=== PATIENT | male | born 1955 | race Caucasian/White ===

== ENCOUNTER 2017-01-17 14:42 | Emergency (ER) | payer MEDICARE, MEDICAID ==
--- NOTE | 2017-01-17 15:31 | Emergency Department Record ---
History of Present Illness - General Chief Complaint: Ankle/Foot Injury Stated Complaint: FELL INJURED LT ANKLE Time Seen by Provider: 01/17/17 15:14 Source: Patient Mode of Arrival: Wheelchair Limitations: No limitations - History of Present Illness Initial Comments: pt fell and injured l ankle. Complaint: Ankle injury Onset/Timin -: Days(s) Injury: Ankle: Left Type of Injury: Other Place: Home Severity: Mild Severity scale (1-10): 8 Improves With: Nothing Worsens With: Nothing Context: Fall, Walking, Other - Related Data Previous Rx's Medication Instructions Recorded Hydrocodone/Acetaminophen [[place] 1 tab PO Q6H PRN #7 tab 01/17/17 5mg/325mg] Allergies Allergy/AdvReac Type Severity Reaction Status Date / Time No Known Drug Allergies Allergy Verified 01/17/17 14:54 Travel Screening - Travel/Exposure Within Last 30 Days Have you traveled within the last 30 days?: No - Travel/Exposure Within Last Year Have you traveled outside the [place] in the last year?: No - Additonal Travel Details Have you been exposed to anyone with a communicable illness?: No - Travel Symptoms Symptom Screening: None Review of Systems Reviewed: No additional complaints except as noted below Constitutional: Reports: As per HPI. Denies: Chills, Fever, Malaise, Night sweats, Weakness, Weight change Eyes: Reports: As per HPI. Denies: Eye discharge, Eye pain, Photophobia, Vision change ENT: Reports: As per HPI. Denies: Congestion, Dental pain, Ear pain, Epistaxis , Hearing loss, Throat pain Respiratory: Reports: As per HPI. Denies: Cough, Dyspnea, Hemoptysis, Stridor, Wheezes Cardiovascular: Reports: As per HPI. Denies: Arrhythmia, Chest pain, Dyspnea on exertion, Edema, Murmurs, Orthopnea, Palpitations, Paroxysmal nocturnal dyspnea, Rheumatic Fever, Syncope Endocrine: Reports: As per HPI. Denies: Fatigue, Heat or cold intolerance, Polydipsia, Polyuria Gastrointestinal: Reports: As per HPI. Denies: Abdominal pain, Constipation, Diarrhea, Hematemesis, Hematochezia, Melena, Nausea, Vomiting Genitourinary: Reports: As per HPI. Denies: Dysuria, Frequency, Hematuria, Incontinence, Retention, Testicular pain, Testicular mass, Urgency Musculoskeletal: Reports: As per HPI. Denies: Arthralgia, Back pain, Gout, Joint swelling, Myalgia, Neck pain Skin: Reports: As per HPI. Denies: Bruising, Change in color, Change in hair/ nails, Lesions, Pruritus, Rash Neurological: Reports: As per HPI. Denies: Abnormal gait, Confusion, Headache, Numbness, Paresthesias, Seizure, Tingling, Tremors, Vertigo, Weakness Psychiatric: Reports: As per HPI. Denies: Anxiety, Auditory hallucinations, Depression, Homicidal thoughts, Suicidal thoughts, Visual hallucinations Hematological/Lymphatic: Reports: As per HPI. Denies: Anemia, Blood Clots, Easy bleeding, Easy bruising, Swollen glands Past Medical History - SOCIAL HISTORY Smoking Status: Current every day smoker Alcohol Use: Heavy Drug Use: None - RESPIRATORY Hx Respiratory Disorders: No - CARDIOVASCULAR Hx Cardio Disorders: Yes Hx Hypertension: Yes Comment:: stents - NEURO Hx Neuro Disorders: Yes Hx TIA: Yes - GI Hx GI Disorders: No - Hx Genitourinary Disorders: No - ENDOCRINE Hx Endocrine Disorders: No - MUSCULOSKELETAL Hx Musculoskeletal Disorders: Yes - PSYCH Hx Psych Problems: No - HEMATOLOGY/ONCOLOGY Hx Hematology/Oncology Disorders: No Family Medical History Any Significant Family History?: No Physical Exam - General General Appearance: Alert, Oriented x3, Cooperative, Mild distress - Head Head exam: Normal inspection - Eye Eye exam: Normal appearance, PERRL, EOMI Pupils: Normal accommodation - ENT ENT exam: Normal exam, Mucous membranes moist, Normal external ear exam, Normal orophraynx Ear exam: Normal external inspection. negative: External canal tenderness Nasal Exam: Normal inspection. negative: Discharge, Sinus tenderness Mouth exam: Normal external inspection, Tongue normal Teeth exam: Normal inspection. negative: Dental caries Throat exam: Normal inspection. negative: Tonsillar erythema, Tonsillar exudate - Neck Neck exam: Normal inspection, Full ROM. negative: Tenderness - Respiratory Respiratory exam: Normal lung sounds bilaterally. negative: Respiratory distress - Cardiovascular Cardiovascular Exam: Regular rate, Normal rhythm, Normal heart sounds - GI/Abdominal GI/Abdominal exam: Soft, Normal bowel sounds. negative: Tenderness - Rectal Rectal exam: Deferred - exam: Deferred - Extremities Extremities exam: Normal inspection, Full ROM, Joint swelling (l ankle), Normal capillary refill, Tenderness - Back Back exam: Reports: Normal inspection, Full ROM. Denies: Muscle spasm, Rash noted, Tenderness - Neurological Neurological exam: Alert, CN II-XII intact, Normal gait, Oriented X3 - Psychiatric Psychiatric exam: Normal affect, Normal mood - Skin Skin exam: Dry, Intact, Normal color, Warm Course Vital Signs 01/17/17 14:46 Temperature 98.3 F Pulse Rate 67 Respiratory 16 Rate Blood Pressure 155/75 Pulse Ox 99 Medical Decision Making - Data Complexity MDM Data: X-Ray Ordered and/or Reviewed - Radiology Data Radiology results: Report reviewed, Image reviewed Disposition Disposition: Discharge Clinical Impression: Sprain of left ankle Qualifiers: Encounter type: initial encounter Involved ligament of ankle: unspecified ligament Qualified Code(s): S93.402A - Sprain of unspecified ligament of left ankle, initial encounter Disposition: Home, Self-Care Condition: (1) Good Instructions: Ankle Sprain (ED) Additional Instructions: follow up with family doctor. return sooner if worse. ice and elevate Prescriptions: Hydrocodone/Acetaminophen [[place]cher 5mg/325mg] 1 tab PO Q6H PRN #7 tab PRN Reason: Pain - General Forms: Patient Portal Access
[2017-01-17] MEDS ORDERED: HYDROCODONE/APAP 5/325MG TABLET PO ONE (16:34)
--- NOTE | 2017-01-21 14:49 | RADIOLOGY REPORT ---
DATE: 01/17/2017. EXAM: LEFT ANKLE. HISTORY: Injury. TECHNIQUE: Three views of the left ankle were performed. FINDINGS: No evidence of fracture or dislocation. Mild soft tissue swelling. IMPRESSION: NEGATIVE FOR FRACTURE. JOB NUMBER: [id number] MTDD
== END 2017-01-17 17:06 | disposition home or self-care (01) ==
LOC: ER 14:42
DX: S93.402A Sprain of unspecified ligament of left ankle, initial encounter (principal); W19.XXXA Unspecified fall, initial encounter; Y92.009 Unspecified place in unspecified non-institutional (private) residence as the place of occurrence of the external cause
CPT/HCPCS: 99283

== ENCOUNTER 2018-09-26 22:33 | Emergency (ER) | payer MEDICARE, MEDICAID ==
[2018-09-26] MEDS ORDERED: 0.9 % SODIUM CHLORIDE 1,000 ML BAG IV ONE (22:56)
[2018-09-26 22:59] LABS: BASO % 0.1 % (0-6); EOS % 0.1 % (0-6); GRAN % 70.2 % (47-80); HEMATOCRIT 20.2 % (42.0-52.0); LYMPH % 22.8 % (16-45); MEAN CELL VOLUME 74.8 fl (81-97); MEAN PLATELET VOLUME 8.9 fl (7.4-10.4); MONO % 6.8 % (0-9); PLATELET COUNT 331 K/uL (130-400); WHITE BLOOD COUNT W/O DIFF 7.9 K/uL (4.2-12.2)
[2018-09-26 23:00] LABS: HEMOGLOBIN 5.5 gm/dl (14.0-18.0); MEAN CORPUSCULAR HEMOGLOBIN 20.3 pg (27-33)
[2018-09-26 23:06] LABS: BLOOD UREA NITROGEN 10 mg/dL (8-23); CREATININE 0.9 mg/dL (0.7-1.2); EST GLOMERULAR FILTRATION RATE > 60 mL/min; MEAN CORPUSCULAR HGB CONC 27.2 g/dl (32-36)
[2018-09-26 23:07] LABS: TOTAL PROTEIN 7.6 g/dL (6.6-8.7)
[2018-09-26 23:09] LABS: GLUCOSE,RANDOM 145 mg/dL (74-109)
[2018-09-26 23:11] LABS: ALT/SGPT 10 U/L (<41)
[2018-09-26 23:12] LABS: ALB/GLOB RATIO 1.4 (1.1-1.8); ALBUMIN 4.4 g/dL (4.0-5.0); ALKALINE PHOSPHATASE 98 U/L (40-129); AST/SGOT 13 U/L (10.0-50.0)
--- NOTE | 2018-09-26 23:22 | Emergency Department Record ---
History of Present Illness - General Stated Complaint: FALL,DIZZINESS,HIGH BLOOD PRESSURE Time Seen by Provider: 09/26/18 22:43 Source: Patient, Family Mode of Arrival: Ambulatory Limitations: No limitations - History of Present Illness Initial Comments: pt became very lightheaded and thought he was going to pass out. he fell to his knees and r elbow, bruising his elbow. he has not had this happen before but he has been increasingly weak the last few weeks. MD Complaint: Lightheadedness -: Hour(s) Timing: Gradual onset Description: Difficulty walking, Lightheadedness History of Same: No Severity: Moderate Worsens With: Position, Exertion - [place] Coma Scale Eye Response: (4) Open spontaneously Motor Response: (6) Obeys commands Verbal Response: (5) Oriented [place] Total: 15 - Symptoms of Stroke Symptoms of stroke: Dizziness - Related Data Home Medications Medication Instructions Recorded Confirmed Last Taken Amlodipine Besylate [Norvasc] 1 tab PO DAILY 09/26/18 09/26/18 09/26/18 Aspirin [Aspir-Low] 1 tab PO DAILY 09/26/18 09/26/18 09/26/18 Clopidogrel Bisulfate [Clopidogrel] 1 tab PO DAILY 09/26/18 09/26/18 09/26/18 Simvastatin 1 tab PO DAILY 09/26/18 09/26/18 09/26/18 Allergies Allergy/AdvReac Type Severity Reaction Status Date / Time No Known Drug Allergies Allergy Verified 01/17/17 14:54 Review of Systems Reviewed: No additional complaints except as noted below Constitutional: Reports: As per HPI, Weakness. Denies: Chills, Fever, Malaise, Night sweats, Weight change Eyes: Reports: As per HPI. Denies: Eye discharge, Eye pain, Photophobia, Vision change ENT: Reports: As per HPI. Denies: Congestion, Dental pain, Ear pain, Epistaxis , Hearing loss, Throat pain Respiratory: Reports: As per HPI. Denies: Cough, Dyspnea, Hemoptysis, Stridor, Wheezes Cardiovascular: Reports: As per HPI. Denies: Arrhythmia, Chest pain, Dyspnea on exertion, Edema, Murmurs, Orthopnea, Palpitations, Paroxysmal nocturnal dyspnea, Rheumatic Fever, Syncope Endocrine: Reports: As per HPI. Denies: Fatigue, Heat or cold intolerance, Polydipsia, Polyuria Gastrointestinal: Reports: As per HPI. Denies: Abdominal pain, Constipation, Diarrhea, Hematemesis, Hematochezia, Melena, Nausea, Vomiting Genitourinary: Reports: As per HPI. Denies: Dysuria, Frequency, Hematuria, Incontinence, Retention, Testicular pain, Testicular mass, Urgency Musculoskeletal: Reports: As per HPI. Denies: Arthralgia, Back pain, Gout, Joint swelling, Myalgia, Neck pain Skin: Reports: As per HPI. Denies: Bruising, Change in color, Change in hair/ nails, Lesions, Pruritus, Rash Neurological: Reports: As per HPI. Denies: Abnormal gait, Confusion, Headache, Numbness, Paresthesias, Seizure, Tingling, Tremors, Vertigo, Weakness Psychiatric: Reports: As per HPI. Denies: Anxiety, Auditory hallucinations, Depression, Homicidal thoughts, Suicidal thoughts, Visual hallucinations Hematological/Lymphatic: Reports: As per HPI. Denies: Anemia, Blood Clots, Easy bleeding, Easy bruising, Swollen glands Past Medical History - SOCIAL HISTORY Smoking Status: Current every day smoker Drug Use: None - RESPIRATORY Hx Respiratory Disorders: No - CARDIOVASCULAR Hx Cardio Disorders: Yes Hx Hypertension: Yes Comment:: stents - NEURO Hx Neuro Disorders: Yes Hx TIA: Yes - GI Hx GI Disorders: No - Hx Genitourinary Disorders: No - ENDOCRINE Hx Endocrine Disorders: No - MUSCULOSKELETAL Hx Musculoskeletal Disorders: Yes - PSYCH Hx Psych Problems: No - HEMATOLOGY/ONCOLOGY Hx Hematology/Oncology Disorders: No Physical Exam - General General Appearance: Alert, Oriented x3, Cooperative, Mild distress - Head Head exam: Normal inspection - Eye Eye exam: Normal appearance, PERRL, EOMI Pupils: Normal accommodation - ENT ENT exam: Normal exam, Mucous membranes moist, Normal external ear exam, Normal orophraynx Ear exam: Normal external inspection. negative: External canal tenderness Nasal Exam: Normal inspection. negative: Discharge, Sinus tenderness Mouth exam: Normal external inspection, Tongue normal Teeth exam: Normal inspection. negative: Dental caries Throat exam: Normal inspection. negative: Tonsillar erythema, Tonsillar exudate - Neck Neck exam: Normal inspection, Full ROM. negative: Tenderness - Respiratory Respiratory exam: Normal lung sounds bilaterally. negative: Respiratory distress - Cardiovascular Cardiovascular Exam: Regular rate, Normal rhythm, Normal heart sounds - GI/Abdominal GI/Abdominal exam: Soft, Normal bowel sounds. negative: Tenderness - Rectal Rectal exam: Deferred - exam: Deferred - Extremities Extremities exam: Normal inspection, Full ROM, Normal capillary refill. negative: Tenderness - Back Back exam: Reports: Normal inspection, Full ROM. Denies: Muscle spasm, Rash noted, Tenderness - Neurological Neurological exam: Alert, CN II-XII intact, Normal gait, Oriented X3 - Psychiatric Psychiatric exam: Normal affect, Normal mood - Skin Skin exam: Dry, Intact, Pallor, Warm Course Vital Signs 09/26/18 22:39 Temperature 97.7 F Pulse Rate [ 98 H Pulse Ox Probe] Respiratory 24 Rate Blood Pressure 102/55 [Left Arm] Pulse Ox 100 - Reevaluation(s) Reevaluation #1: 09/27/18 00:01 pt reports that he had black stools last week. Medical Decision Making - Lab Data Result diagrams: 09/26/18 22:55 09/26/18 22:55 Lab Results 09/26/18 09/26/18 09/26/18 Range/Units 22:55 22:55 22:55 WBC 7.9 (4.2-12.2) K/uL RBC 2.70 L (4.40-5.70) M/uL Hgb 5.5 L* (14.0-18.0) gm/dl Hct 20.2 L (42.0-52.0) % MCV 74.8 L (81-97) fl MCH 20.3 L (27-33) pg MCHC 27.2 L (32-36) g/dl RDW 20.0 H (11.5-14.5) % Plt Count 331 (130-400) K/uL MPV 8.9 (7.4-10.4) fl Gran % 70.2 (47-80) % Lymphocytes % 22.8 (16-45) % Monocytes % 6.8 (0-9) % Eosinophils % 0.1 (0-6) % Basophils % 0.1 (0-6) % Sodium 136 (136-145) mmol/L Potassium 3.5 (3.4-4.5) mmol/L Chloride 101 (98-107) mmol/L Carbon Dioxide 19.0 L (22-29) mmol/L Anion Gap 16.0 (7-16) BUN 10 (8-23) mg/dL Creatinine 0.9 (0.7-1.2) mg/dL Estimated GFR > 60 mL/min Random Glucose 145 H (74-109) mg/dL Calcium 9.3 (8.8-10.2) mg/dL Total Bilirubin 0.30 (0.2-1.0) mg/dL AST 13 (10.0-50.0) U/L ALT 10 (<41) U/L Alkaline Phosphatase 98 (40-129) U/L Total Protein 7.6 (6.6-8.7) g/dL Albumin 4.4 (4.0-5.0) g/dL Globulin 3.2 (1.4-4.8) gm/dL Albumin/Globulin Ratio 1.4 (1.1-1.8) Carbamazepine < 2.0 L (4.0-12.0) ug/mL Disposition Disposition: Transfer Clinical Impression: Acute anemia GI bleed Qualifiers: GI bleed type/associated pathology: unspecified gastrointestinal hemorrhage type Qualified Code(s): K92.2 - Gastrointestinal hemorrhage, unspecified Disposition: Acute Care Hospital Transfer Transfer To: [facility] Reason For Transfer: needs GI doctor Accepting Physician: dr frank Time Discussed w/Accepting Physician: 01:24 Quality - Quality Measures Quality Measures: N/A - Blood Pressure Screening Does Patient Have Any of the Following: No Blood Pressure Classification: Normal BP Reading Systolic Measurement: 102 Diastolic Measurement: 55 Screening for High Blood Pressure: < Normal BP, F/U Not Required > [G8783]
[2018-09-26 23:33] LABS: ABO GROUP O; RH TYPE POSITIVE
[2018-09-26 23:45] LABS: ANTIBODY SCREEN NEGATIVE (NEGATIVE)
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
== END 2018-09-27 03:45 | disposition short-term general hospital (02) ==
LOC: ER 22:33
DX: D62 Acute posthemorrhagic anemia (principal); K92.1 Melena; R42 Dizziness and giddiness; R53.1 Weakness; I10 Essential (primary) hypertension; F17.210 Nicotine dependence, cigarettes, uncomplicated; Z86.73 Personal history of transient ischemic attack (TIA), and cerebral infarction without residual deficits; Z91.81 History of falling; Z95.5 Presence of coronary angioplasty implant and graft
CPT/HCPCS: 99285 ×2; 36430; 85025; 80053; 84484; 80156; 86900; 86901; 86850; 70450; 93005; 93010; P9016; J7030